=== PATIENT | female | born 1955 | race Caucasian/White ===

== ENCOUNTER 2022-07-11 15:36 | Inpatient (IN) ==
[2022-07-11] MEDS ORDERED: PANTOPRAZOLE 40 MG VIAL IV STA ×2 (15:46→16:47)
[2022-07-11 16:08] LABS: Basophils % 0.4 % (0.0-0.8); Eosinophils # 0.1 10*3/uL (0.0-0.87); Hematocrit 24.9 VOL% (35.7-47.0); Immature Granulocytes % 0.5 %; Immature Granulocytes Absolute 0.05 #; Lymphocytes # 1.1 10*3/uL (1.4-4.0); Mean Corpuscular HGB Conc 32.1 GM/DL (32-36); Mean Corpuscular Volume 93.6 FL (87-102); Mean Platelet Volume 8.9 FL (9.6-12.0); Monocytes # 0.6 10*3/uL (0.11-0.8); Monocytes % 6.5 % (1.7-12.7); Neutrophils % 79.6 % (38.7-73.9); Platelet Count 316 T/CUMM (130-400); Red Blood Count 2.66 MC/CUMM (3.8-5.5); Red Cell Distribution Width 11.9 % (9.3-17.3); White Blood Count 9.3 T/CUMM (4-12)
[2022-07-11 16:30] LABS: PT Patient Result 11.2 SECS (10.1-12.1); Partial Thromboplastin Time 25.4 SECS (23.7-32.9)
[2022-07-11 16:36] LABS: Alanine Aminotransferase 11 U/L (13-56); Albumin 2.8 G/DL (3.4-5.0); Alkaline Phosphatase 41 U/L (45-117); Aspartate Amino Transferase 8 U/L (0-37); Bilirubin,Total < 0.39 MG/DL (0.20-1.00); Blood Urea Nitrogen 49 MG/DL (7-18); Carbon Dioxide 26 MMOL/L (21-32); Chloride 109 MMOL/L (98-107); Glucose 121 MG/DL (74-106); Osmolality,Calculated 296.1 MOS/KG (273-304); Sodium 142 MMOL/L (136-145); Total Protein 4.9 G/DL (6.4-8.2)
[2022-07-11] MEDS ORDERED: ACETAMINOPHEN 325 MG TABLET PO PRN (17:00)
[2022-07-11] MEDS ORDERED: DOCUSATE SODIUM 100 MG CAPSULE PO PRN (17:00)
[2022-07-11] MEDS ORDERED: ONDANSETRON 4 MG/2 ML VIAL IV PRN (17:00)
[2022-07-11] MEDS ORDERED: GLUCAGON 1 MG VIAL IM PRN (17:00)
[2022-07-11] MEDS ORDERED: DEXTROSE 10% 250 ML BAG IV PRN (17:08)
[2022-07-11] MEDS: LACTATED RINGERS 1,000 ML IV SCH (17:28)
[2022-07-11 17:51] LABS: Risk Ratio 2.32; Thyroid Stimulating Hormone 1.98 uIU/ml (0.358-3.74); VLDL Cholesterol 18.4 MG/DL
[2022-07-11] MEDS ORDERED: PANTOPRAZOLE INJ 200 MG in SODIUM CHLORIDE 0.9% 250 ML IV SCH (18:00)
[2022-07-11] MEDS: DILTIAZEM CD 180 MG CAPSULE PO SCH (20:49)
[2022-07-11] MEDS: ATORVASTATIN 20 MG TABLET PO SCH (20:52)
[2022-07-11 22:56] LABS: Hematocrit 22.1 VOL% (35.7-47.0)
[2022-07-11] MEDS ORDERED: SODIUM CHLORIDE 0.9% 1,000 ML IV PRN (23:23)
[2022-07-12] MEDS: DILTIAZEM CD 180 MG CAPSULE PO SCH ×2 (08:39→21:01)
[2022-07-12 11:00] LABS: Basophils % 0.4 % (0.0-0.8); Eosinophils # 0.2 10*3/uL (0.0-0.87); Eosinophils % 2.6 % (0.00-10.9); Hematocrit 32.1 VOL% (35.7-47.0); Hemoglobin 10.4 GM/DL (12.0-16.0); Immature Granulocytes % 0.3 %; Immature Granulocytes Absolute 0.02 #; Lymphocytes # 2.2 10*3/uL (1.4-4.0); Lymphocytes % 29.3 % (21.3-54.2); Mean Corpuscular HGB Conc 32.4 GM/DL (32-36); Mean Platelet Volume 8.6 FL (9.6-12.0); Monocytes # 0.7 10*3/uL (0.11-0.8); Monocytes % 9.5 % (1.7-12.7); Neutrophils % 57.9 % (38.7-73.9); Platelet Count 268 T/CUMM (130-400); Red Blood Count 3.45 MC/CUMM (3.8-5.5); Red Cell Distribution Width 12.9 % (9.3-17.3); White Blood Count 7.4 T/CUMM (4-12)
[2022-07-12 11:17] LABS: Calcium 7.9 MG/DL (8.5-10.1); Osmolality,Calculated 284.8 MOS/KG (273-304); Potassium 3.6 MMOL/L (3.5-5.1)
[2022-07-12 16:11] LABS: Hematocrit 31.2 VOL% (35.7-47.0); Hemoglobin 10.1 GM/DL (12.0-16.0)
[2022-07-12] MEDS: LACTATED RINGERS 1,000 ML IV SCH (20:06)
[2022-07-12] MEDS: ATORVASTATIN 20 MG TABLET PO SCH (21:00)
[2022-07-12] MEDS: ASCORBIC ACID 500 MG TABLET PO SCH (21:00)
[2022-07-12] MEDS: PANTOPRAZOLE 40 MG VIAL IV SCH (21:04)
[2022-07-12 22:12] LABS: Hematocrit 28.3 VOL% (35.7-47.0); Hemoglobin 9.3 GM/DL (12.0-16.0)
[2022-07-13 05:51] LABS: Basophils # 0.1 10*3/uL (0.0-0.2); Basophils % 0.9 % (0.0-0.8); Eosinophils # 0.4 10*3/uL (0.0-0.87); Eosinophils % 7.6 % (0.00-10.9); Hematocrit 30.4 VOL% (35.7-47.0); Hemoglobin 9.9 GM/DL (12.0-16.0); Immature Granulocytes % 0.6 %; Immature Granulocytes Absolute 0.03 #; Lymphocytes # 1.8 10*3/uL (1.4-4.0); Lymphocytes % 33.1 % (21.3-54.2); Mean Corpuscular HGB Conc 32.6 GM/DL (32-36); Mean Corpuscular Volume 92.7 FL (87-102); Mean Platelet Volume 8.9 FL (9.6-12.0); Monocytes # 0.6 10*3/uL (0.11-0.8); Monocytes % 10.6 % (1.7-12.7); Neutrophils % 47.2 % (38.7-73.9); Platelet Count 237 T/CUMM (130-400); Red Blood Count 3.28 MC/CUMM (3.8-5.5); Red Cell Distribution Width 12.6 % (9.3-17.3); White Blood Count 5.3 T/CUMM (4-12)
[2022-07-13 06:22] LABS: Calcium 8.3 MG/DL (8.5-10.1); Osmolality,Calculated 284.8 MOS/KG (273-304); Potassium 3.7 MMOL/L (3.5-5.1)
[2022-07-13] MEDS: DILTIAZEM CD 180 MG CAPSULE PO SCH ×2 (08:38→21:21)
[2022-07-13] MEDS: ASCORBIC ACID 500 MG TABLET PO SCH ×2 (08:38→21:21)
[2022-07-13] MEDS: PANTOPRAZOLE 40 MG VIAL IV SCH ×2 (08:38→21:22)
[2022-07-13] MEDS ORDERED: MAGNESIUM OXIDE 400 MG TABLET PO SCH (09:00)
[2022-07-13 12:30] LABS: Hematocrit 31.1 VOL% (35.7-47.0); Hemoglobin 10.2 GM/DL (12.0-16.0)
[2022-07-13] MEDS: ATORVASTATIN 20 MG TABLET PO SCH (21:21)
[2022-07-13 21:28] LABS: Hematocrit 28.9 VOL% (35.7-47.0); Hemoglobin 9.6 GM/DL (12.0-16.0)
[2022-07-14 05:30] LABS: Basophils # 0.1 10*3/uL (0.0-0.2); Basophils % 0.8 % (0.0-0.8); Eosinophils # 0.4 10*3/uL (0.0-0.87); Eosinophils % 6.5 % (0.00-10.9); Hematocrit 31.4 VOL% (35.7-47.0); Hemoglobin 10.3 GM/DL (12.0-16.0); Immature Granulocytes % 0.3 %; Immature Granulocytes Absolute 0.02 #; Lymphocytes % 33.4 % (21.3-54.2); Mean Corpuscular HGB Conc 32.8 GM/DL (32-36); Mean Corpuscular Volume 92.6 FL (87-102); Mean Platelet Volume 8.9 FL (9.6-12.0); Monocytes # 0.7 10*3/uL (0.11-0.8); Monocytes % 11.6 % (1.7-12.7); Neutrophils % 47.4 % (38.7-73.9); Platelet Count 276 T/CUMM (130-400); Red Blood Count 3.39 MC/CUMM (3.8-5.5); Red Cell Distribution Width 12.4 % (9.3-17.3)
[2022-07-14] MEDS: PANTOPRAZOLE 40 MG VIAL IV SCH ×2 (08:44→20:55)
[2022-07-14] MEDS: ASCORBIC ACID 500 MG TABLET PO SCH ×2 (08:44→20:55)
[2022-07-14] MEDS: DILTIAZEM CD 180 MG CAPSULE PO SCH ×2 (08:44→20:55)
[2022-07-14] MEDS: ATORVASTATIN 20 MG TABLET PO SCH (20:55)
[2022-07-15 05:53] LABS: Basophils % 0.6 % (0.0-0.8); Eosinophils # 0.4 10*3/uL (0.0-0.87); Eosinophils % 5.5 % (0.00-10.9); Hematocrit 31.9 VOL% (35.7-47.0); Hemoglobin 10.6 GM/DL (12.0-16.0); Immature Granulocytes % 0.5 %; Immature Granulocytes Absolute 0.03 #; Lymphocytes # 1.9 10*3/uL (1.4-4.0); Lymphocytes % 30.1 % (21.3-54.2); Mean Corpuscular HGB Conc 33.2 GM/DL (32-36); Mean Corpuscular Volume 91.1 FL (87-102); Mean Platelet Volume 9.4 FL (9.6-12.0); Monocytes # 0.7 10*3/uL (0.11-0.8); Monocytes % 11.4 % (1.7-12.7); Neutrophils % 51.9 % (38.7-73.9); Platelet Count 291 T/CUMM (130-400); Red Cell Distribution Width 12.4 % (9.3-17.3); White Blood Count 6.4 T/CUMM (4-12)
[2022-07-15 06:13] LABS: Calcium 8.6 MG/DL (8.5-10.1); Osmolality,Calculated 281.3 MOS/KG (273-304); Potassium 3.8 MMOL/L (3.5-5.1)
[2022-07-15] MEDS ORDERED: LACTATED RINGERS 1,000 ML IV SCH (08:30)
[2022-07-15] MEDS ORDERED: ESMOLOL 100 MG/10 ML VIAL IV ONE (09:02)
[2022-07-15] MEDS ORDERED: LIDOCAINE 2% 5 ML VIAL ONE (09:37)
[2022-07-15] MEDS ORDERED: propofoL 200 MG/20 ML VIAL IV ONE (09:37)
[2022-07-15] MEDS: ASCORBIC ACID 500 MG TABLET PO SCH ×2 (10:31→20:55)
[2022-07-15] MEDS: DILTIAZEM CD 180 MG CAPSULE PO SCH ×2 (10:40→20:55)
[2022-07-15] MEDS: PANTOPRAZOLE 40 MG VIAL IV SCH ×2 (10:46→20:55)
[2022-07-15] MEDS: FLECAINIDE 50 MG TABLET PO SCH ×2 (17:42→21:00)
[2022-07-15] MEDS: POTASSIUM CHLORIDE 10 MEQ TABLET PO SCH (17:42)
[2022-07-15] MEDS: ATORVASTATIN 20 MG TABLET PO SCH (20:55)
[2022-07-16 06:16] LABS: Basophils % 0.5 % (0.0-0.8); Eosinophils # 0.3 10*3/uL (0.0-0.87); Eosinophils % 4.5 % (0.00-10.9); Hematocrit 36.1 VOL% (35.7-47.0); Hemoglobin 11.8 GM/DL (12.0-16.0); Immature Granulocytes % 0.4 %; Immature Granulocytes Absolute 0.03 #; Lymphocytes # 2.4 10*3/uL (1.4-4.0); Lymphocytes % 33.3 % (21.3-54.2); Mean Corpuscular HGB Conc 32.7 GM/DL (32-36); Mean Platelet Volume 9.1 FL (9.6-12.0); Monocytes # 0.8 10*3/uL (0.11-0.8); Monocytes % 11.2 % (1.7-12.7); Neutrophils % 50.1 % (38.7-73.9); Platelet Count 332 T/CUMM (130-400); Red Blood Count 3.88 MC/CUMM (3.8-5.5); Red Cell Distribution Width 12.7 % (9.3-17.3); White Blood Count 7.3 T/CUMM (4-12)
[2022-07-16 06:33] LABS: Calcium 8.8 MG/DL (8.5-10.1); Potassium 4.3 MMOL/L (3.5-5.1)
[2022-07-16 08:16] VITALS: BP 113/62
[2022-07-16] MEDS ORDERED: FLECAINIDE 100 MG TABLET PO SCH (09:00)
[2022-07-16] MEDS: POTASSIUM CHLORIDE 10 MEQ TABLET PO SCH (09:31)
[2022-07-16] MEDS: ASCORBIC ACID 500 MG TABLET PO SCH (09:31)
[2022-07-16] MEDS: DILTIAZEM CD 180 MG CAPSULE PO SCH (09:32)
[2022-07-16] MEDS: PANTOPRAZOLE 40 MG VIAL IV SCH (09:38)
[2022-07-16] MEDS ORDERED: FLECAINIDE 50 MG TABLET PO SCH (10:00)
== END 2022-07-16 13:02 | disposition home or self-care (01) | DRG 378 ==
LOC: N.ED 15:36 → N.EDINP 16:58 → SUATTDRO 16:58 → N.5E 18:07
PROVIDERS: ADMIT Hospitalist; ATTEND Internal Medicine Geriatric Medicine